=== PATIENT | male | born 1960 | race Caucasian/White ===

== ENCOUNTER 2023-06-20 08:59 | Outpatient (CLI) | payer OTHER, SELFPAY | END 2023-06-20 09:00 | disposition home or self-care (01) | LOC: NFLDREF 06-24 22:39 | PROVIDERS: PCP Internal Medicine; Referring Provider Internal Medicine; Visit Provider Internal Medicine | DX: Z12.5 Encounter for screening for malignant neoplasm of prostate (principal); Z13.6 Encounter for screening for cardiovascular disorders | CPT/HCPCS: 80053; 80061; 84153 ==

== ENCOUNTER 2023-07-13 16:18 | Day surgery (SDC) | payer OTHER, SELFPAY ==
[2023-07-13] VITALS (14 sets, daily range): BP systolic 119–159; BP diastolic 76–97; PULSE 67–89; RESP 16–18; TEMP 36.4–37.2; O2SAT 95–100; BMI 26.4
--- NOTE | 2023-07-13 17:19 | CRLHL7_ITS ---
For Patients: As a result of the Century Cures Act, medical imaging exams and procedure reports are released immediately into your electronic medical record. You may view this report before your referring provider. If you have questions, please contact your health care provider. INDICATION: Right lower quadrant pain for 1.5 days TECHNIQUE: CT abdomen and pelvis acquired with IV contrast. 81 mL Isovue 370 COMPARISON: None FINDINGS: Lower chest: Unremarkable. Liver: Unremarkable. Spleen: Unremarkable. Pancreas: Unremarkable. Gallbladder and bile ducts: Unremarkable. Kidneys: Probable small cyst left upper kidney and parapelvic cysts on the left. Adrenal glands: Unremarkable. GI tract: Diverticulosis. Mildly dilated appendix with wall thickening. There is periappendiceal inflammatory change. Vascular structures: Negative. No sign of aneurysm. Lymph nodes: Unremarkable. Pelvic Organs: Enlarged prostate gland. Bones: Unremarkable for age. IMPRESSION: 1. Acute appendicitis. 2. Enlarged prostate gland. Please note that all CT scans at this facility use dose modulation, iterative reconstruction, and/or weight-based dosing when appropriate to reduce radiation dose to as low as reasonably achievable. Dictated by Yany Nogueira MD @ 07/13/2023 5:57:19 PM (Electronically Signed)
[2023-07-13 17:35] LABS: Basophils Percent Auto 0.2 % (0.0-3.0); Eosinophils Percent Auto 1.5 % (0.0-7.0); Hematocrit 49.9 % (37.0-53.0); Immature Granulocytes Pct Auto 0.1 %; Lymphocytes Percent Auto 9.5 % (20-44); Mean Corpuscular HGB Conc 32 gm/dL (32-36); Mean Corpuscular Hemoglobin 30 pg (26-34); Mean Corpuscular Volume 95 fL (80-100); Monocytes Percent Auto 7.6 % (0.0-11.0); Neutrophils Percent Auto 81.1 % (42.0-72.0); Platelet Count* 211 K/uL (140-440); RDW Coefficient of Variation % 12.4 % (11.5-15.5); Red Blood Count 5.28 m/uL (4.30-5.90); Slide Review Reflex No; White Blood Count* 12.73 K/uL (4.50-11.00)
[2023-07-13 17:50] LABS: Albumin* 4.6 g/dL (3.3-5.0)
[2023-07-13 17:51] LABS: Chloride* 102 mmol/L (96-114); Potassium* 4.5 mmol/L (3.6-5.1); Sodium* 136 mmol/L (135-149)
[2023-07-13 17:53] LABS: Alkaline Phosphatase* 63 U/L (40-150); Anion Gap 6 mEq/L (7-15); Aspartate Amino Transferase* 53 U/L (12-35); Blood Urea Nitrogen* 14 mg/dL (7-30); Carbon Dioxide* 28 mmol/L (20-32); Creatinine* 0.6 mg/dL (0.5-1.5); Est. Creatinine Clearance* 72.53; Estimated Glomerular Filt Rate 110 ml/min; Lipase* 54 U/L (23-300); Total Protein* 7.8 g/dL (6.0-8.3)
[2023-07-13 17:54] LABS: Alanine Aminotransferase* 64 U/L (4-50); Calcium* 9.2 mg/dL (8.4-10.6); Glucose* 85 mg/dL (60-115)
--- NOTE | 2023-07-13 17:58 | ED.ABDPAIN ---
HPI - Abdominal Pain General Date Seen: 07/13/23 Chief Complaint: Abdominal Pain Stated Complaint: stomach pain Time Seen by Provider: 07/13/23 16:20 Source: patient Mode of arrival: ambulatory Limitations: no limitations History of Present Illness HPI narrative: Patient is 62-year-old male presenting to the emergency department for right lower quadrant abdominal pain. Pain is roughly around the inguinal ligament region. Denies ever having pain like this before. Has never had previous abdominal surgeries. Last bowel movement was yesterday and was normal. Denies any urinary symptoms at this time. Has not taken anything for pain at this time. He is concerned about his appendix. No injuries to the area that he is aware of. No recent heavy lifting. Denies nausea, chest pain, shortness of breath, lightheadedness, dizziness, diarrhea, constipation. Has been eating and drinking without issue. Pain started last night has been gradually getting worse. Related Data Previous Rx's Medication Instructions Recorded albuterol sulfate 90 mcg/actuation 2 inh inhalation BID PRN shortness 11/18/22 aerosol inhaler of breath or wheezing #6.7 grams bupropion HCl 300 mg 24 hr tablet, 300 mg PO DAILY #90 tabs 11/18/22 extended release fluoxetine 20 mg capsule 20 mg PO DAILY #90 caps 11/18/22 gabapentin 300 mg capsule 900 mg (3 x 300 mg) PO BID Pain 06/17/23 #180 caps hydrocodone 5 mg-acetaminophen 325 1 tab PO Q6H PRN pain #10 tabs 07/13/23 mg tablet sennosides 8.6 mg capsule (senna) 8.6 mg PO DAILY PRN constipation 07/13/23 #90 caps Allergies Allergy/AdvReac Type Severity Reaction Status Date / Time No Known Allergies Allergy Unknown Unverified 07/13/23 17:43 Review of Systems Status of ROS Reports: 10 or more systems reviewed and unremarkable except as noted in History and below [facility] Medical History Neck Pain ?M54.2 - Cervicalgia (ICD-10) Bronchitis ?J40 - Bronchitis, not specified as acute or chronic (ICD-10) Knee pain ?M25.569 - Pain in unspecified knee (ICD-10) Surgical History History of surgical removal of ganglion cyst (11/13/04) ?Z98.890 - Other specified postprocedural states (ICD-10) History of carpal tunnel surgery of left wrist (11/13/12) ?Z98.890 - Other specified postprocedural states (ICD-10) Social History Narrative: current chewing tobacco user Smoking Status: Never smoker Do you use any of these nicotine containing products: Smokeless Tobacco Second hand tobacco smoke exposure: No Little interest or pleasure in doing things: not at all Feeling down, depressed, or hopeless: not at all Exam Narrative: Exam Narrative: Const: Well-nourished, Well-developed, in mild distress Eyes: PERRL, no conjunctival injection, and symmetrical lids HENT: Atraumatic external nose and ears. Moist mucous membranes. Neck: Symmetric, trachea midline, No thyromegaly. CVS: RRR, No murmurs or gallops. Peripheral pulses 2+ and equal in all extremities RESP: Unlabored respiratory effort. Clear to auscultation bilaterally. GI: Pain in right lower quadrant closer to the inguinal ligament./Nondistended, No rebound or guarding. MSK:Extremities w/o deformity, Normal Active ROM Skin: Warm, Dry. No rashes or lesions. Neuro: Normal Muscle tone, No focal neurological deficits. Psych: Awake, Alert, & Oriented x3. Appropriate mood and affect. Const: Vital Signs, click to edit/add: Vital Signs - 24 hr 07/13/23 16:23 07/13/23 20:18 07/13/23 20:25 Temperature 98.4 F 98.2 F Pulse Rate 89 81 Pulse Rate [Pulse Oximeter] 77 Respiratory Rate 16 16 18 Blood Pressure 159/94 H 151/92 H Blood Pressure [Ri ght Upper Arm] 122/76 Pulse Oximetry 96 100 100 Oxygen Delivery Me thod Room Air Room Air 07/13/23 20:30 07/13/23 20:35 07/13/23 20:40 Temperature Pulse Rate 85 79 72 Pulse Rate [Pulse Oximeter] Respiratory Rate 16 16 16 Blood Pressure 158/97 H 146/83 H 149/90 H Blood Pressure [Ri ght Upper Arm] Pulse Oximetry 100 100 96 Oxygen Delivery Me thod Room Air 07/13/23 20:45 07/13/23 20:50 Temperature 98.9 F Pulse Rate 71 75 Pulse Rate [Pulse Oximeter] Respiratory Rate 16 16 Blood Pressure 125/79 137/84 Blood Pressure [Ri ght Upper Arm] Pulse Oximetry 96 96 Oxygen Delivery Me thod Room Air Course Vital Signs Vital signs: Initial Vital Signs Temperature 98.4 F 07/13/23 16:23 Temperature Source Temporal Artery Scan 07/13/23 16:23 Pulse Rate 77 07/13/23 16:23 Respiratory Rate 16 07/13/23 16:23 Blood Pressure 122/76 07/13/23 16:23 Blood Pressure Mean 91 07/13/23 16:23 Blood Pressure Position Supine 07/13/23 16:23 Pulse Oximetry 96 07/13/23 16:23 Oxygen Delivery Method Room Air 07/13/23 16:23 Vital Signs Temperature 98.4 F 07/13/23 16:23 Pulse Rate 77 07/13/23 16:23 Respiratory Rate 16 07/13/23 16:23 Blood Pressure 122/76 07/13/23 16:23 Pulse Oximetry 96 07/13/23 16:23 Oxygen Delivery Method Room Air 07/13/23 16:23 Temperature 98.9 F 07/13/23 20:50 Pulse Rate 75 07/13/23 20:50 Respiratory Rate 16 07/13/23 20:50 Blood Pressure 137/84 07/13/23 20:50 Pulse Oximetry 96 07/13/23 20:50 Oxygen Delivery Method Room Air 07/13/23 20:50 MDM - Abdominal Pain MDM Narrative Medical decision making narrative: Patient is a 62-year-old male presenting for right lower quadrant abdominal pain. Symptoms midline for the past couple days. They are gradually getting worse. Has no previous abdominal surgeries. Has been having normal bowel movements. History of palpation right lower quadrant but this to be close to tears inguinal ligament than to McBurney's point. Ligamentous strain is on the differential at this time but we cannot rule appendicitis. CBC, CMP, lipase, CT scan with IV contrast was ordered. . White blood cell count came back at 12.73. He meets no other SIRS criteria is not considered septic at this time. Rest of lab work showed no concerning abnormalities. AST and ALT are slightly elevated. CT scan returned showing acute appendicitis. I did speak to Dr. Walters, who will take him to surgery this evening. Patient is agreeable to this plan. Zosyn was ordered per her recommendations. Lab Data Labs: Lab Results 07/13/23 07/13/23 Range/Units 17:27 18:42 WBC 12.73 H (4.50-11.00) K/uL RBC 5.28 (4.30-5.90) m/uL Hgb 16.0 (13.5-17.5) gm/dL Hct 49.9 (37.0-53.0) % MCV 95 (80-100) fL MCH 30 (26-34) pg MCHC 32 (32-36) gm/dL RDW Coeff of Leda 12.4 (11.5-15.5) % Plt Count 211 (140-440) K/uL Neut % (Auto) 81.1 H (42.0-72.0) % Lymph % (Auto) 9.5 L (20-44) % [place] % (Auto) 7.6 (0.0-11.0) % Eos % (Auto) 1.5 (0.0-7.0) % Baso % (Auto) 0.2 (0.0-3.0) % Neut # (Auto) 10.30 H (1.7-7.0) K/uL Lymph # (Auto) 1.20 (0.90-2.90) K/uL [place] # (Auto) 1.00 H (0.00-0.90) K/UL Eos # (Auto) 0.20 (0.00-0.50) K/uL Baso # (Auto) 0.00 (0.00-0.30) K/uL Abs Immat Gran (auto) 0.00 (0.00-0.30) K/uL Imm/Tot Granulo (auto) 0.1 % Sodium 136 (135-149) mmol/L Potassium 4.5 (3.6-5.1) mmol/L Chloride 102 (96-114) mmol/L Carbon Dioxide 28 (20-32) mmol/L Anion Gap 6 L (7-15) mEq/L BUN 14 (7-30) mg/dL Creatinine 0.6 (0.5-1.5) mg/dL Estimated Creat Clear 72.53 Estimated GFR 110 ml/min Glucose 85 (60-115) mg/dL Calcium 9.2 (8.4-10.6) mg/dL Total Bilirubin 1.0 (0.1-1.5) mg/dL AST 53 H (12-35) U/L ALT 64 H (4-50) U/L Alkaline Phosphatase 63 (40-150) U/L Total Protein 7.8 (6.0-8.3) g/dL Albumin 4.6 (3.3-5.0) g/dL Lipase 54 (23-300) U/L Urine Color Yellow (Yellow) Urine Appearance Clear (Clear) Urine pH 7.0 (5.0-8.5) Ur Specific [place] 1.015 (1.000-1.030) Urine Protein Negative (Negative) Urine Glucose (UA) Negative (Negative) Urine Ketones Trace A (Negative) Urine Blood Negative (Negative) Urine Nitrite Negative (Negative) Urine Bilirubin Negative (Negative) Urine Urobilinogen 1.0 (0.2-1.0) Ur Leukocyte Esterase Negative (Negative) Urine RBC 0-2 (0-2) Urine WBC 0-2 (0-5) Ur Squamous Epith Cells None (None-Few) Urine Bacteria None (None) Imaging Data CT scan abdomen pelvis: Radiologist's impression: 1. Acute appendicitis. 2. Enlarged prostate gland. Please note that all CT scans at this facility use dose modulation, iterative reconstruction, and/or weight-based dosing when appropriate to reduce radiation dose to as low as reasonably achievable. Dictated by Yany Nogueira MD @ 07/13/2023 5:57:19 PM Discharge Plan Discharge Clinical Impression: Acute appendicitis Qualifiers: Acute appendicitis type: unspecified acute appendicitis type Qualified Code(s): K35.80 - Unspecified acute appendicitis Patient Disposition: XFER to OR Condition: Stable
[2023-07-13 18:50] LABS: Appearance Urine Clear (Clear); Bilirubin Urine Negative (Negative); Blood Urine Negative (Negative); Color Urine Yellow (Yellow); Glucose Urine Negative (Negative); Ketones Urine Trace (Negative); Leukocyte Esterase Urine Negative (Negative); Nitrite Urine Negative (Negative); Protein Urine Negative (Negative); Specific Gravity Urine 1.015 (1.000-1.030)
--- NOTE | 2023-07-13 18:57 | PM.GSHP ---
History of Present Illness History of Present Illness Date Seen: 07/13/23 Chief complaint: stomach pain Narrative: Shayan Martinez is a 62 year old male who presented to the emergency department with little over 1 day history of right lower quadrant abdominal pain. He states the pain is always been on his right side. In increased intensity over the day today, which prompted him to come in. Never had pain like this before. Denies any associated nausea or vomiting. Did have some diarrhea this morning. No fevers at home. He has never had abdominal surgery before. Nonsmoker and retired. Otherwise healthy. He denies any family history of problems with anesthesia, bleeding or blood clots. Review of Systems Status of ROS: Reports: 6 or more systems reviewed and unremarkable except as noted in History and below [facility] Medical History Neck Pain ?M54.2 - Cervicalgia (ICD-10) Bronchitis ?J40 - Bronchitis, not specified as acute or chronic (ICD-10) Knee pain ?M25.569 - Pain in unspecified knee (ICD-10) Surgical History History of surgical removal of ganglion cyst (11/13/04) ?Z98.890 - Other specified postprocedural states (ICD-10) History of carpal tunnel surgery of left wrist (11/13/12) ?Z98.890 - Other specified postprocedural states (ICD-10) Social History Narrative: current chewing tobacco user Smoking Status: Never smoker Do you use any of these nicotine containing products: Smokeless Tobacco Second hand tobacco smoke exposure: No Little interest or pleasure in doing things: not at all Feeling down, depressed, or hopeless: not at all Meds Home Medications and Allergies Allergies Allergy/AdvReac Type Severity Reaction Status Date / Time No Known Allergies Allergy Unknown Unverified 07/13/23 17:43 Exam Narrative: Exam Narrative: General: Alert and oriented, nontoxic in appearance Respiratory: Equal breath rise, maintained on room air CV: Well perfused Abdomen: Soft, tender to palpation right lower quadrant with some guarding. Const: Vital Signs, click to edit/add: Vital Signs - 24 hr 07/13/23 16:23 Temperature 98.4 F Pulse Rate [Pulse Oximeter] 77 Respiratory Rate 16 Blood Pressure [Ri ght Upper Arm] 122/76 Pulse Oximetry 96 Oxygen Delivery Me thod Room Air Results Results Labs: Leukocytosis (12). Other labs within normal limits. Abdomen CT scan report/results: report reviewed and image reviewed Assessment and Plan Assessment and plan (1) Acute appendicitis: Status: Acute Plan The patient presented with a history, exam and imaging findings consistent with acute appendicitis. I discussed the treatment options with the patient including non-surgical and surgical options. I recommended laparoscopic appendectomy. The risks of surgery were reviewed with the patient including the risks of bleeding, post-operative wound or intra-abdominal infection, injury to abdominal structures and possible conversion to an open operation. We also discussed anesthetic complications including [place], stroke, respiratory failure and blood clots. The patient voiced an understanding of our conversation, had the opportunity to ask questions, agreed to accept the risks of surgery and asked that we proceed with surgery.
[2023-07-13] MEDS: PIPERACILLIN/TAZOBACTAM 3.375 GM in 0.9 % SODIUM CHLORIDE Mini-bag 100 ML IVPB ×2 (19:04→19:17)
[2023-07-13 19:05] LABS: RBC Urine 0-2 (0-2); WBC Urine 0-2 (0-5)
[2023-07-13] MEDS: LACTATED RINGERS 1000 ML 125 ML IV (19:11)
[2023-07-13] MEDS: BUPIVACAINE 0.25% 30 ML INJECTION (19:57)
--- NOTE | 2023-07-13 20:15 | P.GSOP_ITS ---
Operative Note Pre-op diagnosis: Acute appendicitis Post-op diagnosis: Same, non perforated Type of Procedure: Laparoscopic appendectomy Indications: Patient is a 62-year-old male presented to the emergency department with clinical history and imaging consistent with acute appendicitis. Risks and benefits of operative intervention were discussed at length with the patient. Risks included but was not limited to: Bleeding, infection, risk of damage to surrounding structures, possible need for additional procedures, possible need to convert to an open operation and postoperative complications such as pneumonia, pulmonary emboli or [place]. All questions and concerns were addressed with the patient agreeing to proceed. Procedure Description: After discussing the risks and benefits of the procedure, the patient signed informed consent.? The operative site was marked and the patient was brought to the operating room and placed on the operating table in supine position.? Care was taken to pad the patient's pressure points.?? The patient was then intubated by anesthesia.?? The operative site was then prepped and draped in the usual s terile fashion.? A time-out was then performed. Entrance to the abdomen was obtained via a 5 mm optical trocar in the left upper quadrant. The abdomen was insufflated and briefly surveyed for any signs of injury. The stomach was distended and inflated with air, but there was no evidence of injury. An OG was placed during the case to assist with decompression. A 12 mm port was placed at the umbilicus as well as a 5 mm port in the left lower quadrant under direct vision. The patient was then placed in Trendelenburg position with the right side up. The small bowel was gently moved out of the way. The cecum was dialted and small bowel in the pelvis appeared inflamed. Some lateral attachments of the cecum were taken down with cautery. The appendix was grasped and pulled into view. Evidence of fibrinous exudate on the tip of the appendix. The mid body and near the base of the appendix was necrotic in appearance, but without evidence of perforation. A mesenteric window was created between the base of the appendix and the mesoappendix. A 45 mm Endo-PIERO purple load stapler was then used to transect the appendix at its base. A 45 mm vascular load stapler was then used to take the mesoappendix. The staple lines were inspected for bleeding. Some pinpoint bleeding was seen on the mesentery, this was controlled with cautery. The appendix was then removed from the abdomen using an Endo-Catch bag. The specimen was sent to pathology. The 12 mm port site fascia was closed with 0 Vicryl via the Moses- Chip. All other ports were removed under direct visualization. The skin was then closed with absorbable subcuticular suture. Sterile dressings were then applied. Instrument sponge and needle counts were correct at the end of the case. The patient was then woken and transported to the PACU in stable condition. Findings: Acute appendicitis, no evidence of perforation. Anesthesia: GETA Surgeon: Marcia Wlaters MD Specimen: Appendix Condition: stable Disposition: PACU Date of procedure: 07/13/23
--- NOTE | 2023-07-13 20:23 | W.ANESCHARGE ---
Anesthesia Charges Start Date/Time Anesthesia Start Date: 07/13/23 Anesthesia Start Time: 19:11 Stop Date/Time Anesthesia Stop Date: 07/13/23 Anesthesia Stop Time: 20:22 Summary Emergency: CODING SUPPORT SPECIALIST
[2023-07-13] MEDS: GABAPENTIN 300 MG CAPSULE 900 MG PO (23:07)
[2023-07-13] MEDS: 0.9 % SODIUM CHLORIDE 1000 ml 1,000 ML 125 ML IV (23:07)
[2023-07-14] VITALS: BP 125/83; PULSE 79; RESP 16; TEMP 36.6; O2SAT 98
[2023-07-14 00:24] VITALS: BP 138/85; PULSE 78; RESP 16; TEMP 36.9; O2SAT 95
[2023-07-14] MEDS: PIPERACILLIN/TAZOBACTAM 3.375 GM in 0.9 % SODIUM CHLORIDE Mini-bag 100 ML IVPB ×2 (00:49→06:09)
[2023-07-14 01:00] VITALS: BP 122/78; PULSE 72; RESP 16; TEMP 36.6; O2SAT 95
[2023-07-14 02:00] VITALS: BP 119/68; PULSE 63; RESP 16; TEMP 36.4; O2SAT 97
[2023-07-14 03:00] VITALS: BP 111/74; PULSE 68; RESP 16; TEMP 36.4; O2SAT 97
--- NOTE | 2023-07-14 07:34 | PC.NURSE ---
End of shift [id number] - Pt arrived from PACU at approximately 2100. Pt alert, oriented, cooperative and accompanied by spouse. Surgical sites x 3 covered with steristrips upon arrival. Surgical site (LLQ) clean, dry, intact. Surgical sites x2 (Umbilicus and LUQ) noted to have dried?blood on skin and dressing. Steristrips on Umbilicus and LUQ dc?d by patient with movement. Not additional discharge noted at sites. Pt tolerating fluids and regular diet, up with standby assist to bathroom. Pt reported tolerating pain and refused pain medication during shift. Ice pack on site for comfort. RN provided education regarding pain management options, pt continued to decline. Pt observed to sleep and appeared to be resting comfortably at end of shift.
[2023-07-14 07:40] VITALS: BP 125/91; PULSE 69; RESP 18; TEMP 36.1; O2SAT 97
--- NOTE | 2023-07-14 07:46 | PC.NURSE ---
Late entry order - patient to be admitted as M/S Recovery on 07/13/23 at 2200 post-op lap appy
== END 2023-07-14 09:50 | disposition home or self-care (01) ==
LOC: ED 18:43 → SS 19:49 → MEDSURG 07-14 08:12
PROVIDERS: Emergency Provider Student in an Organized Health Care Education/Training Program; PCP Internal Medicine; Visit Provider Surgery
PROC: 0DTJ4ZZ Resection of Appendix, Percutaneous Endoscopic Approach (ICD-10-PCS; CPT 44970; principal; 2023-07-13 19:00)
DX: K35.80 Unspecified acute appendicitis (principal)
CPT/HCPCS: 44970; 00840; 36415; 74177; 80053; 81001; 83690; 85025; 88304; 99140; 99283; 99284; A9270; G0378; J0330; J0665; J1100; J1885; J2250; J2371; J2405; J2543; J2704; J2710; J3010; J7030; J7120; Q9967